=== PATIENT | male | born 1945 | race Caucasian/White ===

== ENCOUNTER 2017-04-15 17:39 | Emergency (ER) | payer OTHER, BC ==
[~2017-04-15] VITALS: Ht 182.9 cm; Wt 80.0 kg
[2017-04-15] MEDS ORDERED: TAMSULOSIN HCL0.4 MG PO (18:16)
[2017-04-15] MEDS ORDERED: CARVEDILOL6.25 MG PO (18:16)
[2017-04-15] MEDS ORDERED: ASPIRIN81 MG PO (18:17)
[2017-04-15] MEDS ORDERED: XARELTO20 MG PO (18:18)
[2017-04-15] MEDS ORDERED: TESTOSTERON200 MG/ML IM (18:19)
[2017-04-15] MEDS ORDERED: SYMBICORT 80-4.5MCG IN (18:21)
[2017-04-15 19:47] LABS: HEMATOCRIT 52.9 % (39.0-50.0); HEMOGLOBIN 17.8 g/dl (14.0-18.0); IMMATURE GRANULOCYTES 0.4 % (0.0-1.0); MEAN CELL VOLUME 93.1 fL CALC (80.0-100.0); MEAN CORPUSCULAR HGB 31.3 pG CALC (26.0-32.0); MEAN CORPUSCULAR HGB CONC 33.6 g/L CALC (32.0-36.0); NEUT# 8.57 thou/uL (1.82-7.42); RED BLOOD COUNT 5.68 mill/uL (4.70-6.10); RED CELL DISTRI WIDTH 11.9 % (11.5-15.5)
[2017-04-15 19:55] LABS: ACT PARTIAL THROMBO TIME 29.9 SECONDS (20.0-32.5); PROTHROMBIN TIME 11.5 SECONDS (9.0-12.5)
[2017-04-15 19:57] LABS: ALBUMIN 4.6 g/dL (3.2-5.0); ALKALINE PHOSPHATASE 117 u/l (38-126); ANION GAP 19 (6-22 (CALC)); BILIRUBIN, TOTAL 0.8 mg/dL (0.0-1.4); BUN 15 mg/dL (8-23); BUN/CREATININE RATIO 13 (12-20 (CALC)); CALCIUM 9.8 mg/dL (8.4-10.2); CARBON DIOXIDE 27 mmol/l (22-30); CHLORIDE 101 mmol/l (95-108); CREATININE 1.2 mg/dL (0.7-1.3); GFR 60 ML/MIN (>=60 (CALC)); GFR FOR AFR.AMER. > 60 ML/MIN (>=60 (CALC)); GLUCOSE 144 mg/dL (82-115); POTASSIUM 4.4 mmol/l (3.5-5.1); SGOT/AST 43 u/l (19-48); SGPT/ALT 45 u/l (11-66); SODIUM 143 mmol/l (137-146); TOTAL PROTEIN 7.6 g/dL (6.3-8.2)
[2017-04-15 20:08] LABS: MYOGLOBIN 86 ng/mL (0 - 121)
[2017-04-15 22:27] VITALS: BP 141/68
--- NOTE | 2017-04-17 14:01 | NUR ---
Called pt due to preliminary blood culture results growing gram positive cocci in 1/2 sets. Pt reports he is feeling much better, cough and breathing has improved. Denies fever, chills, and generalized malaise. Pt saw PCP, Dr Barlow, at [facility] yesterday. Pt requested final blood cultures results to be sent along to his PCP. Advised pt to return to ED immediately if any fever or a worsening of symptoms. Pt verbalized understanding.
--- NOTE | 2017-04-22 10:59 | NUR ---
Spoke to [place] at PCP office. Faxed lab microbiology results to Dr. Barlow at [place], [place] on 04/22/17 at 10:50AM to [phone]
== END 2017-04-15 22:27 | disposition left against medical advice (07) | DRG 292 ==
LOC: ED 17:39 → ED-I 20:49 → ED 22:27
PROVIDERS: Emergency Medicine
DX: I50.9 Heart failure, unspecified (principal); J44.1 Chronic obstructive pulmonary disease with (acute) exacerbation; I42.9 Cardiomyopathy, unspecified; R06.02 Shortness of breath; Z91.19 Patient's noncompliance with other medical treatment and regimen; R05 Cough

== ENCOUNTER 2017-12-26 07:26 | Emergency (ER) | payer BC ==
[~2017-12-26] VITALS: Ht 182.9 cm; Wt 79.0 kg
[~2017-12-26 07:26] MED LIST: ASPIRIN81 MG PO; CARVEDILOL6.25 MG PO; SYMBICORT 80-4.5MCG IN; TAMSULOSIN HCL0.4 MG PO; TESTOSTERON200 MG/ML IM; XARELTO20 MG PO
[2017-12-26 08:10] LABS: URINE BILIRUBIN - DIPSTICK NEGATIVE (NEGATIVE); URINE BLOOD DIPSTICK SMALL (NEGATIVE); URINE CLARITY SL CLOUDY; URINE COLOR YELLOW; URINE GLUCOSE - DIPSTICK NEGATIVE (NEGATIVE); URINE KETONE NEGATIVE (NEGATIVE); URINE LEUK ESTERASE LARGE (NEGATIVE); URINE NITRITE - DIPSTICK POSITIVE (Negative); URINE PROTEIN - DIPSTICK NEGATIVE (NEG-TRACE); URINE UROBILINOGEN - DIPSTICK 0.2 E.U./dL (0.2)
[2017-12-26 08:17] LABS: URINE WBC 20-50 WBC/hpf (0-5)
[2017-12-26 08:19] LABS: URINE BACTERIA MANY hpf; URINE RBC 0-2 RBC/hpf (0-5)
[2017-12-26] MEDS ORDERED: CEPHALEXIN500 M1 PO (08:22)
[2017-12-26 08:33] VITALS: BP 137/82
== END 2017-12-26 08:47 | disposition home or self-care (01) | DRG 726 ==
LOC: ED 07:26
PROVIDERS: Family Medicine
PROC: 0T9B70Z Drainage of Bladder with Drainage Device, Via Natural or Artificial Opening (ICD-10-PCS; principal; 2017-12-26)
DX: N40.1 Benign prostatic hyperplasia with lower urinary tract symptoms (principal); R33.8 Other retention of urine; J44.9 Chronic obstructive pulmonary disease, unspecified; B95.7 Other staphylococcus as the cause of diseases classified elsewhere

== ENCOUNTER 2018-03-03 21:02 | Emergency (ER) | payer BC ==
[~2018-03-03] VITALS: Ht 182.9 cm; Wt 78.6 kg
[~2018-03-03 21:02] MED LIST changes: +CEPHALEXIN500 M1 PO
[2018-03-03 21:49] LABS: URINE BILIRUBIN - DIPSTICK NEGATIVE (NEGATIVE); URINE BLOOD DIPSTICK LARGE (NEGATIVE); URINE COLOR YELLOW; URINE GLUCOSE - DIPSTICK NEGATIVE (NEGATIVE); URINE KETONE NEGATIVE (NEGATIVE); URINE NITRITE - DIPSTICK NEGATIVE (Negative); URINE PROTEIN - DIPSTICK 30 mg/dL (NEG-TRACE); URINE UROBILINOGEN - DIPSTICK 0.2 E.U./dL (0.2)
[2018-03-03 21:54] LABS: URINE CLARITY HAZY; URINE LEUK ESTERASE SMALL (NEGATIVE)
[2018-03-03] MEDS ORDERED: MACROBID100 MG PO (22:04)
[2018-03-03 22:38] VITALS: BP 128/70
== END 2018-03-03 22:35 | disposition home or self-care (01) | DRG 690 ==
LOC: ED 21:02
PROVIDERS: Emergency Medicine
PROC: 0T9B70Z Drainage of Bladder with Drainage Device, Via Natural or Artificial Opening (ICD-10-PCS; principal; 2018-03-03)
DX: N39.0 Urinary tract infection, site not specified (principal); R33.9 Retention of urine, unspecified; Z98.890 Other specified postprocedural states; B95.61 Methicillin susceptible Staphylococcus aureus infection as the cause of diseases classified elsewhere

== ENCOUNTER 2018-03-12 03:35 | Emergency (ER) | payer BC ==
[~2018-03-12] VITALS: Ht 182.9 cm; Wt 78.6 kg
[~2018-03-12 03:35] MED LIST changes: +MACROBID100 MG PO
[2018-03-12 04:03] LABS: URINE BILIRUBIN - DIPSTICK NEGATIVE (NEGATIVE); URINE BLOOD DIPSTICK LARGE (NEGATIVE); URINE COLOR YELLOW; URINE GLUCOSE - DIPSTICK NEGATIVE (NEGATIVE); URINE KETONE NEGATIVE (NEGATIVE); URINE PROTEIN - DIPSTICK 100 mg/dL (NEG-TRACE); URINE SPECIFIC GRAVITY 1.015; URINE UROBILINOGEN - DIPSTICK 0.2 E.U./dL (0.2)
[2018-03-12 04:04] LABS: URINE CLARITY CLOUDY; URINE LEUK ESTERASE LARGE (NEGATIVE); URINE NITRITE - DIPSTICK POSITIVE (Negative)
[2018-03-12 04:06] LABS: URINE BACTERIA FEW hpf; URINE WBC TNTC WBC/hpf (0-5)
[2018-03-12 05:06] LABS: IMMATURE GRANULOCYTES 0.3 % (0.0-5.0); MEAN CELL VOLUME 91.5 fL CALC (80.0-100.0); MEAN CORPUSCULAR HGB 31.7 pG CALC (26.0-32.0); MEAN CORPUSCULAR HGB CONC 34.6 g/L CALC (32.0-36.0); NEUT# 9.84 thou/uL (1.82-7.42); RED BLOOD COUNT 4.58 mill/uL (4.70-6.10); RED CELL DISTRI WIDTH 12.3 % (11.5-15.5)
[2018-03-12 05:22] LABS: HEMATOCRIT 41.9 % (39.0-50.0); HEMOGLOBIN 14.5 g/dl (14.0-18.0)
[2018-03-12 05:29] LABS: ALBUMIN 3.9 g/dL (3.2-5.0); BILIRUBIN, TOTAL 0.7 mg/dL (0.0-1.4); CREATININE 1.4 mg/dL (0.7-1.3); POTASSIUM 4.8 mmol/l (3.5-5.1); TOTAL PROTEIN 7.2 g/dL (6.3-8.2)
[2018-03-12] MEDS ORDERED: PYRIDIUM200 MG PO (05:45)
[2018-03-12] MEDS ORDERED: MACROBID100 MG PO (05:45)
[2018-03-12 06:05] VITALS: BP 117/69
== END 2018-03-12 06:15 | disposition home or self-care (01) | DRG 690 ==
LOC: ED 03:35
PROVIDERS: Emergency Medicine
PROC: 0T9B70Z Drainage of Bladder with Drainage Device, Via Natural or Artificial Opening (ICD-10-PCS; principal; 2018-03-12)
DX: N39.0 Urinary tract infection, site not specified (principal); B96.1 Klebsiella pneumoniae [K. pneumoniae] as the cause of diseases classified elsewhere; R30.0 Dysuria; R35.0 Frequency of micturition; R39.15 Urgency of urination; Z98.890 Other specified postprocedural states

== ENCOUNTER 2018-03-24 03:57 | Emergency (ER) | payer BC ==
[~2018-03-24] VITALS: Ht 182.9 cm; Wt 79.0 kg
[~2018-03-24 03:57] MED LIST changes: +PYRIDIUM200 MG PO
[2018-03-24 04:33] LABS: URINE BLOOD DIPSTICK MODERATE (NEGATIVE); URINE COLOR YELLOW; URINE GLUCOSE - DIPSTICK 100 mg/dL (NEGATIVE); URINE KETONE NEGATIVE (NEGATIVE); URINE NITRITE - DIPSTICK POSITIVE (Negative); URINE PROTEIN - DIPSTICK 100 mg/dL (NEG-TRACE); URINE SPECIFIC GRAVITY 1.025; URINE UROBILINOGEN - DIPSTICK 0.2 E.U./dL (0.2)
[2018-03-24 04:34] LABS: URINE BILIRUBIN - DIPSTICK NEGATIVE (NEGATIVE); URINE CLARITY TURBID
[2018-03-24 04:35] LABS: URINE LEUK ESTERASE SMALL (NEGATIVE); URINE WBC 50-100 WBC/hpf (0-5)
[2018-03-24] MEDS ORDERED: CEPHALEXIN500 M1 PO (04:51)
[2018-03-24 05:37] VITALS: BP 118/76
== END 2018-03-24 05:36 | disposition home or self-care (01) | DRG 690 ==
LOC: ED 03:57
PROVIDERS: Emergency Medicine
DX: N39.0 Urinary tract infection, site not specified (principal); B96.1 Klebsiella pneumoniae [K. pneumoniae] as the cause of diseases classified elsewhere; J44.9 Chronic obstructive pulmonary disease, unspecified; F17.200 Nicotine dependence, unspecified, uncomplicated; Z98.890 Other specified postprocedural states

== ENCOUNTER 2019-03-25 14:25 | Emergency (ER) | payer OTHER, BC ==
[~2019-03-25] VITALS: Ht 182.9 cm; Wt 90.0 kg
[2019-03-25] MEDS ORDERED: DIGOXIN0.125 MG PO (14:53)
[2019-03-25] MEDS ORDERED: ASPIRIN81 MG PO (14:54)
[2019-03-25] MEDS ORDERED: XARELTO15 MG PO (15:24)
[2019-03-25 15:50] VITALS: BP 174/81
== END 2019-03-25 15:50 | disposition home or self-care (01) | DRG 300 ==
LOC: ED 14:25
DX: I82.401 Acute embolism and thrombosis of unspecified deep veins of right lower extremity (principal); I42.9 Cardiomyopathy, unspecified; J44.9 Chronic obstructive pulmonary disease, unspecified; Z95.0 Presence of cardiac pacemaker; Z86.718 Personal history of other venous thrombosis and embolism